=== PATIENT | female | born 1980 | race African-American/Black ===

== ENCOUNTER 2021-09-29 13:26 | Emergency (ER) | payer OTHER, SELFPAY ==
[2021-09-29] MEDS ORDERED: Ketorolac Tromethamine 60 MG/2 ML VIAL ONE (14:03)
== END 2021-09-29 14:53 | disposition home or self-care (01) ==
LOC: NAV ERS 13:26
DX: S82.402A Unspecified fracture of shaft of left fibula, initial encounter for closed fracture (principal); W01.0XXA Fall on same level from slipping, tripping and stumbling without subsequent striking against object, initial encounter
CPT/HCPCS: 29515; 96372; J1885

== ENCOUNTER 2025-06-30 17:01 | Emergency (ER) | payer MEDICARE, MEDICAID | END 2025-06-30 18:00 | disposition home or self-care (01) | LOC: NAV ERS 17:01 | DX: J02.9 Acute pharyngitis, unspecified (principal) | CPT/HCPCS: 99283 ==

== ENCOUNTER 2025-07-27 12:11 | Emergency (ER) | payer OTHER, MEDICAID ==
[~2025-07-27 12:11] MED LIST: Iopamidol 370 76% 100 ML VIAL ONE
[2025-07-27] MEDS ORDERED: Ondansetron PF 4 MG/2 ML Vial ONE ×2 (12:53→14:10)
[2025-07-27] MEDS ORDERED: Aspirin Chewable 81 MG TAB ONE (12:53)
[2025-07-27] MEDS ORDERED: Pantoprazole 40 MG VIAL ONE (12:53)
[2025-07-27 13:01] LABS: #Basophils 0.1 thou/uL (0.0-0.2); #Eosinophils 0.4 thou/uL (0.0-0.7); #Lymphocytes 3.3 thou/uL (1.20-3.40); #Monocytes 0.7 thou/uL (0.11-0.59); #Neutrophils 2.3 thou/uL (1.40-6.50); %Basophils 1.2 % (0.0-1.0); %Eosinophils 5.9 % (0.0-10.0); %Lymphocytes 49.2 % (21.0-51.0); %Monocytes 10.2 % (0.0-10.0); %Neutrophils 33.5 % (42.0-75.0); Hematocrit 34.8 % (36.0-47.0); Hemoglobin 11.4 g/dL (12.0-16.0); Mean Corpuscular Hemoglobin 26.9 pg (27.0-31.0); Mean Corpuscular Volume 82.0 fl (78.0-98.0); Platelet Count 463 10x3/uL (130-400); Red Blood Cell (RBC) Count 4.24 mill/uL (4.20-5.40); White Blood Cell (WBC) Count 6.8 10x3/uL (4.8-10.8)
[2025-07-27 13:15] LABS: ALT (SGPT) 78 U/L (Less than 34); AST (SGOT) 139 U/L (11-34); Albumin 3.0 g/dL (3.1-4.5); Alkaline Phosphatase 84 U/L (40-110); Anion Gap 24 mmol/L (10-20); BUN (Urea Nitrogen) 4 mg/dL (7.0-18.7); Bilirubin, Total 1.4 mg/dL (0.3-1.2); Calc. Creatinine Clearance 0 mL/min (70-130); Calcium 9.0 mg/dL (7.8-10.44); Carbon Dioxide 11 mmol/L (22-29); Chloride 101 mmol/L (98-107); Globulin 4.4 g/dL (2.4-3.5); Glucose 114 mg/dL (70-105); Lipase 30 U/L (8-78); Potassium 3.1 mmol/L (3.5-5.1); Sodium 133 mmol/L (136-145); Troponin I Less than 0.010 ng/mL (< 0.028)
[2025-07-27 13:43] LABS: Glucose, Urine (Dipstick) Negative (Negative); Leukocyte Negative (Negative); Protein, Urine (Dipstick) 30 mg/dL (Neg-Trace); Specific Gravity, Urine 1.025 (1.005-1.030)
[2025-07-27 13:49] LABS: CAUTI Indications for Culture Dysuria,urgency,freq; WBC/HPF 0-3 HPF (0-3)
[2025-07-27 13:50] LABS: Urine Culture Reflex No No
[2025-07-27 13:51] LABS: Cocaine Metabolite Screen Negative (Negative); THC/Cannabinoid Screen Negative (Negative); Tricyclic Screen Negative (Negative)
[2025-07-27 14:02] LABS: Bicarbonate (HCO3v) 12.6 mmol/L (22.0-28.0); CO2 Tension (PvCO2) 25.7 mmHg (42.0-51.0); Calcium, Ionized 1.14 mmol/L (1.15-1.33); Chloride 109 mmol/L (98-107); Hemoglobin - Calc 10.9 g/dL (12.0-16.0); Potassium 3.2 mmol/L (3.5-5.1); Sodium 132 mmol/L (138-145); T. Carbon Dioxide 13.4 mmol/L (22.0-28.0); vO2 Saturation-calc 85.5 % (60.0-85.0)
[2025-07-27 16:16] LABS: Pregnancy Test - Urine (BHCG) Negative (Negative); Pregu Control Bar Appear? YES (CONTROL BAR)
[2025-07-27 16:17] LABS: Pregu Control Background? CLEAR/WHITE (CLR/WHITE)
[2025-07-27 17:43] LABS: Anion Gap 22 mmol/L (10-20); BUN (Urea Nitrogen) Less than 4 mg/dL (7.0-18.7); Calc. Creatinine Clearance 0 mL/min (70-130); Calcium 8.6 mg/dL (7.8-10.44); Carbon Dioxide 11 mmol/L (22-29); Chloride 104 mmol/L (98-107); Glucose 92 mg/dL (70-105); Potassium 2.9 mmol/L (3.5-5.1); Sodium 134 mmol/L (136-145)
[2025-07-27 17:44] LABS: Bicarbonate (HCO3v) 12.5 mmol/L (22.0-28.0); CO2 Tension (PvCO2) 24.1 mmHg (42.0-51.0); Calcium, Ionized 1.17 mmol/L (1.15-1.33); Chloride 109 mmol/L (98-107); Hemoglobin - Calc 10.3 g/dL (12.0-16.0); Potassium 2.9 mmol/L (3.5-5.1); Sodium 133 mmol/L (138-145); T. Carbon Dioxide 13.3 mmol/L (22.0-28.0); vO2 Saturation-calc 98.0 % (60.0-85.0)
== END 2025-07-27 19:29 | disposition short-term general hospital (02) ==
LOC: NAV ERS 12:11
DX: K81.0 Acute cholecystitis (principal); E86.0 Dehydration; E87.20 Acidosis, unspecified; Z79.890 Hormone replacement therapy; Z79.85 Long-term (current) use of injectable non-insulin antidiabetic drugs
CPT/HCPCS: 36416; 70450; 71045; 74177; 80053; 80306; 81001; 81025; 82010; 82330; 82803; 83605; 83690; 84484; 85025; 87040; 87426; 93005; 94760; 96361; 96374; 96375; 96376; J2470; J2543; J7030; J7120; Q9967